=== PATIENT | female | born 1995 | race Two or more races ===

== ENCOUNTER 2018-04-12 14:29 | Emergency (ER) | payer SELFPAY ==
[~2018-04-12] VITALS: Ht 167.6 cm; Wt 50.8 kg
[2018-04-12 15:17] LABS: Eosinophils # (auto) 0.1 uL; Eosinophils % (auto) 0.5 % (0.0-7.0); Lymphocytes # (auto) 1.6 uL; Monocytes # (auto) 0.8 uL; Neutrophils # (auto) 8.7 uL
[2018-04-12 15:19] LABS: Basophils # (auto) 0 uL; Basophils % (auto) 0.3 % (0.0-2.0); Hematocrit 33.9 % (36.0-46.0); Hemoglobin 10.7 g/dL (12.2-16.2); Lymphocytes % (auto) 14.3 % (10.0-50.0); Mean Corpuscular Hemoglobin 20.8 pg (28.0-32.0); Mean Corpuscular Hgb Conc. 31.6 g/dL (32.0-36.0); Mean Corpuscular Volume 65.8 fL (80.0-100.0); Monocytes % (auto) 7.2 % (0.0-12.0); Neutrophils % (auto) 77.7 % (37.0-80.0); Platelet Count (auto) 256 10^3/uL (140-450); Red Blood Cells 5.15 10^6/uL (4.0-5.20); Red Cell Distribution Width 18.9 % (11.8-14.3); White Blood Cell 11.2 10^3/uL (4.4-10.8)
[2018-04-12 15:23] LABS: Urine Bacteria NONE SEEN /hpf (None Seen); Urine Blood Negative /uL (Negative); Urine Mucus FEW (None Seen); Urine Specific Gravity 1.026 (1.001-1.035); Urine WBC 1 /hpf (0 - 5)
[2018-04-12 15:34] LABS: BUN/Creatinine Ratio 10.9; Potassium 3.1 mmol/L (3.5-5.1)
[2018-04-12 15:35] LABS: Albumin 4.2 g/dL (3.4-5.0); Bilirubin, Total 0.6 mg/dL (0.2-1.0); Total Protein 7.4 g/dL (6.4-8.2)
[2018-04-12] MEDS ORDERED: PANTOPRAZOLE 40 MG/10 ML VIAL IV STA (16:38)
[2018-04-12] MEDS ORDERED: SODIUM CHLORIDE 0.9% 1,000 ML IVB ONE (16:38)
[2018-04-12] MEDS ORDERED: ONDANSETRON HCL 4 MG/2 ML VIAL IV ONE (16:45)
[2018-04-12] MEDS ORDERED: POTASSIUM CHL 20 Meq TABLET PO ONE (18:15)
[2018-04-12 18:40] VITALS: BP 114/72
== END 2018-04-12 19:29 | disposition home or self-care (01) ==
LOC: ER 14:29
DX: F12.19 Cannabis abuse with unspecified cannabis-induced disorder (principal); R10.84 Generalized abdominal pain; R11.2 Nausea with vomiting, unspecified
CPT/HCPCS: 36415; 80053; 81001; 81025; 82150; 83690; 85025; 94761; 96361; 96374; 96375; 99284; C9113; J2405